=== PATIENT | male | born 1990 | race Two or more races ===

== ENCOUNTER 2016-12-19 00:56 | Emergency (ER) | payer MEDICARE, OTHER ==
[~2016-12-19] VITALS: Ht 167.6 cm; Wt 63.5 kg
[~2016-12-19 00:56] MED LIST: CARV12.544; MINO2.5T2; NIFEDIAC CC; OMEPRAZOLE DR 40 MG CAPSULE; SEVE800T8
[2016-12-19 01:36] VITALS: BP 116/59
== END 2016-12-19 03:10 | disposition home or self-care (01) ==
LOC: ER 00:56
DX: Z76.0 Encounter for issue of repeat prescription (principal); I12.0 Hypertensive chronic kidney disease with stage 5 chronic kidney disease or end stage renal disease; N18.6 End stage renal disease; Z94.0 Kidney transplant status